=== PATIENT | male | born 1970 | race African-American/Black ===

== ENCOUNTER 2018-06-09 23:49 | Emergency (ER) | payer SELFPAY ==
--- NOTE | 2018-06-10 00:29 | EDM.PDOC ---
ED HPI GENERAL MEDICAL PROBLEM - General Chief Complaint: Upper Extremity Injury/Pain Stated Complaint: AMBULANCE Time Seen by Provider: 06/09/18 23:52 Source of Information: Reports: Patient, EMS History Limitations: Reports: Intoxication - History of Present Illness INITIAL COMMENTS - FREE TEXT/NARRATIVE: The patient presents by [facility] for a right shoulder injury. EMS say he is intoxicated and he fell and hit his shoulder on a wall. He did not hurt his head or neck. He does not remember what happened. He only had a couple drinks but it seems like more. He has no other injuries. He has no chest pain or abdominal pain. Onset: Sudden Duration: Minutes: Location: Reports: Upper Extremity, Right (Shoulder) Quality: Reports: Sharp Severity: Moderate Improves with: Reports: Immobilization Worsens with: Reports: Movement Associated Symptoms: Reports: No Other Symptoms Left Clavicle Pain Score (Numeric/FACES): 8 - Related Data Allergies Allergy/AdvReac Type Severity Reaction Status Date / Time No Known Allergies Allergy Verified 06/09/18 23:58 Home Meds: Home Meds . [No Known Home Meds] 06/09/18 [History] Past Medical History - Past Health History Medical/Surgical History: Denies Medical/Surgical History Social & Family History - Tobacco Use Smoking Status *Q: Light Tobacco Smoker Years of Tobacco use: 6 Packs/Tins Daily: 0.2 - Caffeine Use Caffeine Use: Reports: Energy Drinks - Recreational Drug Use Recreational Drug Use: No Review of Systems - Review of Systems Review Of Systems: See Below Constitutional: Reports: No Symptoms Eyes: Reports: No Symptoms Ears: Reports: No Symptoms Nose: Reports: No Symptoms Mouth/Throat: Reports: No Symptoms Respiratory: Reports: No Symptoms Cardiovascular: Reports: No Symptoms GI/Abdominal: Reports: No Symptoms Genitourinary: Reports: No Symptoms Musculoskeletal: Reports: Other (Right shoulder pain and deformity) ED EXAM, GENERAL - Physical Exam Exam: See Below Exam Limited By: Intoxication General Appearance: Alert, No Apparent Distress Ears: Normal External Exam Nose: Normal Inspection Head: Atraumatic, Normocephalic Neck: Normal Inspection Respiratory/Chest: No Respiratory Distress, Lungs Clear, Normal Breath Sounds Cardiovascular: Regular Rate, Rhythm, No Edema, No Murmur GI/Abdominal: Soft, Non-Tender, No Organomegaly, No Mass Extremities: Other (Deformity and pain at the AC joint. Good sensation and pulses distally.) Course - Vital Signs Last Recorded V/S: Last Vital Signs Temp 99.3 F 06/09/18 23:53 Pulse 91 06/09/18 23:53 Resp 18 06/09/18 23:53 BP 127/85 06/09/18 23:53 Pulse Ox 96 06/09/18 23:53 - Orders/Labs/Meds Orders: Active Orders 24 hr Category Date Time Status Shoulder Comp Rt [CR] Stat Exams 06/09/18 23:52 Taken - Re-Assessments/Exams Free Text/Narrative Re-Assessment/Exam: 06/10/18 00:27 I ordered an x-ray and it shows a right AC separation. I will get him in a sling. Departure - Departure Time of Disposition: 00:30 Disposition: Home, Self-Care 01 Condition: Good Clinical Impression: AC separation Qualifiers: Encounter type: initial encounter Laterality: right Qualified Code(s): S43.101A - Unspecified dislocation of right acromioclavicular joint, initial encounter - Discharge Information *PRESCRIPTION DRUG MONITORING PROGRAM REVIEWED*: Not Applicable *COPY OF PRESCRIPTION DRUG MONITORING REPORT IN PATIENT RAUL: Not Applicable Referrals: Cachorro Alba MD [Physician] - 1 Week Additional Instructions: Ice your shoulder for 15 minutes 3 times per day for a week. Take tylenol or motrin for pain. Please return if you are worse. Follow up with Dr Alba in 1 to 2 weeks. - My Orders Last 24 Hours: My Active Orders 06/09/18 23:52 Shoulder Comp Rt [CR] Stat - Assessment/Plan Last 24 Hours: My Active Orders 06/09/18 23:52 Shoulder Comp Rt [CR] Stat
--- NOTE | 2018-06-11 07:58 | CR ---
Right shoulder: Three views of the right shoulder were obtained. Comparison: No prior shoulder study. Dislocation is seen within the acromioclavicular joint. Glenohumeral joint appears within normal limits. No fracture or other abnormality is identified. Impression: 1. Right acromioclavicular separation. Diagnostic code #3
== END 2018-06-10 01:07 | disposition home or self-care (01) ==
LOC: JD.ED 23:49
DX: S43.101A Unspecified dislocation of right acromioclavicular joint, initial encounter (principal); F17.210 Nicotine dependence, cigarettes, uncomplicated; W22.01XA Walked into wall, initial encounter
CPT/HCPCS: 73030-26-RT; 73030-RT; 99282; 99283

== ENCOUNTER 2018-06-12 17:06 | Emergency (ER) | payer SELFPAY ==
--- NOTE | 2018-06-12 17:50 | EDM.PDOC ---
ED HPI GENERAL MEDICAL PROBLEM - General Chief Complaint: Upper Extremity Injury/Pain Stated Complaint: R ARM PAIN Time Seen by Provider: 06/12/18 17:14 Source of Information: Reports: Patient History Limitations: Reports: No Limitations - History of Present Illness INITIAL COMMENTS - FREE TEXT/NARRATIVE: The patient presents with right shoulder pain. He fell a few nights ago and he has an AC separation. He was given a sling and he was to follow up with Dr Alba. He was unable to get an appointment yet. He is still having pain. Onset: Sudden Duration: Day(s): (3) Location: Reports: Upper Extremity, Right (shoulder) Quality: Reports: Sharp Severity: Moderate Improves with: Reports: Immobilization Worsens with: Reports: Movement Context: Reports: Trauma (He fell and hurt his shoulder) Associated Symptoms: Reports: No Other Symptoms Treatments TECH ED/[employer]: Reports: Acetaminophen Right Shoulder Pain Score (Numeric/FACES): 7 - Related Data Allergies Allergy/AdvReac Type Severity Reaction Status Date / Time No Known Allergies Allergy Verified 06/12/18 17:16 Home Meds: Home Meds traMADol [Ultram] 50 - 100 mg PO Q6H PRN #20 tab 06/12/18 [Rx] Past Medical History - Past Health History Medical/Surgical History: Denies Medical/Surgical History HEENT History: Reports: Impaired Vision Neurological History: Reports: Headaches, Chronic Other Neuro History: "Gets a headache from working too much" Social & Family History - Family History Family Medical History: Noncontributory - Tobacco Use Smoking Status *Q: Current Every Day Smoker Years of Tobacco use: 6 Packs/Tins Daily: 1 - Caffeine Use Caffeine Use: Reports: Coffee, Energy Drinks - Recreational Drug Use Recreational Drug Use: No Review of Systems - Review of Systems Review Of Systems: See Below Constitutional: Reports: No Symptoms Eyes: Reports: No Symptoms Ears: Reports: No Symptoms Nose: Reports: No Symptoms Mouth/Throat: Reports: No Symptoms Respiratory: Reports: No Symptoms Cardiovascular: Reports: No Symptoms GI/Abdominal: Reports: No Symptoms Genitourinary: Reports: No Symptoms Musculoskeletal: Reports: Shoulder Pain (right) ED EXAM, GENERAL - Physical Exam Exam: See Below Exam Limited By: No Limitations General Appearance: Alert, No Apparent Distress Ears: Normal External Exam Nose: Normal Inspection Head: Atraumatic, Normocephalic Neck: Normal Inspection Respiratory/Chest: No Respiratory Distress, Lungs Clear, Normal Breath Sounds Cardiovascular: Regular Rate, Rhythm, No Edema, No Murmur GI/Abdominal: Soft, Non-Tender, No Organomegaly, No Mass Back Exam: Normal Inspection Extremities: Other (Pain upon palpation with mild deformity to the right AC joint) Course - Vital Signs Last Recorded V/S: Last Vital Signs Temp 97.2 F 06/12/18 17:19 Pulse 64 06/12/18 17:19 Resp 16 06/12/18 17:19 BP 134/86 06/12/18 17:19 Pulse Ox 98 06/12/18 17:19 - Re-Assessments/Exams Free Text/Narrative Re-Assessment/Exam: 06/12/18 17:54 I will try him in a shoulder immobilizer and get him some ultram for pain. Departure - Departure Time of Disposition: 18:00 Disposition: Home, Self-Care 01 Condition: Good Clinical Impression: AC separation Qualifiers: Encounter type: initial encounter Laterality: right Qualified Code(s): S43.101A - Unspecified dislocation of right acromioclavicular joint, initial encounter - Discharge Information *PRESCRIPTION DRUG MONITORING PROGRAM REVIEWED*: No *COPY OF PRESCRIPTION DRUG MONITORING REPORT IN PATIENT RAUL: No Prescriptions: traMADol [Ultram] 50 - 100 mg PO Q6H PRN #20 tab PRN Reason: Pain Referrals: PCP,None [Primary Care Provider] - Cachorro Alba MD [Physician] - 1 Week Forms: ED Department Discharge, ED Return to Work/School Form Additional Instructions: Ice your shoulder for 15 minutes 3 times per day for 2 days. Try using the shoulder immobilizer. Follow up with Dr Alba.
== END 2018-06-12 18:07 | disposition home or self-care (01) ==
LOC: JD.ED 17:06
DX: S43.101A Unspecified dislocation of right acromioclavicular joint, initial encounter (principal); F17.210 Nicotine dependence, cigarettes, uncomplicated; W18.39XA Other fall on same level, initial encounter
CPT/HCPCS: 99283

== ENCOUNTER 2018-07-19 19:15 | Emergency (ER) | payer OTHER ==
--- NOTE | 2018-07-19 19:33 | EDM.PDOC ---
ED HPI GENERAL MEDICAL PROBLEM - General Chief Complaint: Upper Extremity Injury/Pain Stated Complaint: SHOULDER PAIN Time Seen by Provider: 07/19/18 19:26 Source of Information: Reports: Patient, RN Notes Reviewed History Limitations: Reports: No Limitations - History of Present Illness INITIAL COMMENTS - FREE TEXT/NARRATIVE: Patient is a 48-year-old male who presents to the ED today for the evaluation of right shoulder pain. He notes a previous AC separation injury in May that he has been seen in this ED for. He had been prescribed some tramadol for pain relief and a shoulder immobilizer. The patient states that he was taking a nap this afternoon and he woke up with right shoulder pain. He states that the pain is around a 5 out of 10. He also notes that the pain has decreased since he has checked into the ER. He did not take any pain medications for the shoulder pain before coming to the ER. He further notes that he did do his follow-up appointment with Dr. Alba and he did not need any further management from him. Right Shoulder Pain Score (Numeric/FACES): 5 - Related Data Allergies Allergy/AdvReac Type Severity Reaction Status Date / Time No Known Allergies Allergy Verified 07/19/18 19:28 Home Meds: Home Meds traMADol [Ultram] 50 - 100 mg PO Q6H PRN #20 tab 06/12/18 [Rx] Past Medical History - Past Health History Medical/Surgical History: Denies Medical/Surgical History HEENT History: Reports: Impaired Vision Neurological History: Reports: Headaches, Chronic Other Neuro History: "Gets a headache from working too much" Social & Family History - Family History Family Medical History: Noncontributory - Tobacco Use Smoking Status *Q: Current Some Day Smoker Years of Tobacco use: 6 Packs/Tins Daily: 0.2 - Caffeine Use Caffeine Use: Reports: Coffee, Energy Drinks, Tea - Recreational Drug Use Recreational Drug Use: No Review of Systems - Review of Systems Review Of Systems: See Below Constitutional: Reports: No Symptoms Eyes: Reports: No Symptoms Ears: Reports: No Symptoms Nose: Reports: No Symptoms Mouth/Throat: Reports: No Symptoms Respiratory: Reports: No Symptoms Cardiovascular: Reports: No Symptoms GI/Abdominal: Reports: No Symptoms Genitourinary: Reports: No Symptoms Musculoskeletal: Reports: Shoulder Pain (Right) Skin: Reports: No Symptoms Neurological: Reports: No Symptoms Psychiatric: Reports: No Symptoms ED EXAM, GENERAL - Physical Exam Exam: See Below Exam Limited By: No Limitations General Appearance: Alert, WD/WN, No Apparent Distress Head: Atraumatic, Normocephalic Neck: Normal Inspection, Supple, Non-Tender, Full Range of Motion Respiratory/Chest: No Respiratory Distress, Lungs Clear, Normal Breath Sounds, No Accessory Muscle Use, Chest Non-Tender Cardiovascular: Normal Peripheral Pulses, Regular Rate, Rhythm, No Murmur Back Exam: Normal Inspection, Full Range of Motion Extremities: Normal Inspection, Normal Range of Motion, Non-Tender, Normal Capillary Refill Neurological: Alert, Oriented, Normal Cognition, Normal Gait, Normal Reflexes, No Motor/Sensory Deficits Psychiatric: Normal Affect, Normal Mood Skin Exam: Warm, Dry, Intact, Normal Color, No Rash Course - Vital Signs Last Recorded V/S: Last Vital Signs Temp 98.1 F 07/19/18 19:25 Pulse 93 07/19/18 19:25 Resp 20 07/19/18 19:25 BP 129/99 H 07/19/18 19:25 Pulse Ox 100 07/19/18 19:25 - Re-Assessments/Exams Free Text/Narrative Re-Assessment/Exam: 07/19/18 19:52 Patient presents to the ED for the evaluation of right shoulder pain. He had been prescribed some tramadol at home that he could use for pain relief. I recommended that he go home and take his tramadol for pain relief tonight. His shoulder does not appear to be to acutely affecting him at this time. He is able to move his shoulder and normal range of motion with little discomfort. Patient is amenable to this plan. Departure - Departure Time of Disposition: 19:41 Disposition: Home, Self-Care 01 Condition: Fair Clinical Impression: Right shoulder pain Qualifiers: Chronicity: acute Qualified Code(s): M25.511 - Pain in right shoulder - Discharge Information *PRESCRIPTION DRUG MONITORING PROGRAM REVIEWED*: No *COPY OF PRESCRIPTION DRUG MONITORING REPORT IN PATIENT RAUL: No Instructions: Shoulder Pain, [id number] Referrals: PCP,None [Primary Care Provider] - Forms: ED Department Discharge, ED Return to Work/School Form Additional Instructions: You have been evaluated in the ED for your right shoulder pain. Please use ice/heat as tolerated to the affected area. You may take tylenol 500 mg or ibuprofen 600mg q6 hrs for pain relief. Please do so until you have a tolerable level of pain with activity. Do not exceed 4000mg tylenol, Do not exceed 3200mg ibuprofen in a 24 hour time period. You may take your Ultram (tramadol) as previously directed for right shoulder pain. Please return to ED if your symptoms should change or worsen.
== END 2018-07-19 19:53 | disposition home or self-care (01) ==
LOC: JD.ED 19:15
DX: M25.511 Pain in right shoulder (principal); F17.210 Nicotine dependence, cigarettes, uncomplicated
CPT/HCPCS: 99282; 99283